=== PATIENT | male | born 1980 | race Caucasian/White ===

== ENCOUNTER 2021-05-13 07:48 | Outpatient (CLI) | payer BC, SELFPAY ==
[2021-05-13 08:32] LABS: Alanine Aminotransferase 30 U/L (16-63); Albumin Level 4.4 g/dL (3.4-5.0); Alkaline Phosphatase 59 U/L (46-116); Anion Gap 7 mmol/L (8-16); Aspartate Amino Transferase 21 U/L (15-37); Bilirubin,Total 0.4 mg/dL (0.00-1.00); Blood Urea Nitrogen 15 mg/dL (7-18); Calcium 9.2 mg/dL (8.5-10.1); Carbon Dioxide 32 mmol/L (21-32); Chloride 106 mmol/L (98-108); Cholesterol 169 mg/dL (0-200); Creatine Kinase 390 U/L (39-308); Estimated Glomerular Filt Rate > 60; Glucose 97 mg/dL (70-99); HDL Direct 38 mg/dL (40-60); LDL Cholesterol Calculated 117 mg/dL (<130); Osmolality Calculated 300 mOsm/kg (285-295); Sodium 145 mmol/L (136-145); Total Protein 6.6 g/dL (6.4-8.2); Triglycerides 71 mg/dL (0-150)
== END 2021-05-13 07:49 | disposition home or self-care (01) ==
LOC: CHSLAB 07:52
PROVIDERS: PCP Internal Medicine; Visit Provider Internal Medicine
DX: E78.2 Mixed hyperlipidemia (principal)
CPT/HCPCS: 36415; 80053; 80061; 82550

== ENCOUNTER 2024-09-03 16:23 | Outpatient (CLI) | payer BC, SELFPAY ==
--- NOTE | ~2024-09-03 | XR_ITS ---
EXAMINATION: XR clavicle RT DATE: 09/03/2024 16:42 INDICATION: Right shoulder injury. TECHNIQUE: 2 views of right clavicle were obtained. COMPARISON: Right shoulder radiographs 09/03/2024 FINDINGS: Alignment is normal. There is a nondisplaced transverse fracture of right clavicle seen on one view at the junction of the middle and distal thirds. Acromioclavicular joint is normal. IMPRESSION: 1. Nondisplaced transverse fracture of right clavicle at the junction of the middle and distal thirds . Reviewed, dictated and finalized at location B. GRINDER IMPRESSION: 1. Nondisplaced transverse fracture of right clavicle at the junction of the mi ddle and distal thirds.
--- NOTE | ~2024-09-03 | XR_ITS ---
EXAMINATION: XR shoulder RT min 2V DATE: 09/03/2024 16:42 INDICATION: Right shoulder injury. TECHNIQUE: 4 views of right shoulder were obtained. COMPARISON: None. FINDINGS: Alignment is normal. No fracture. There is a mesoacromial os acromiale. There is mild osteo arthritis of glenohumeral joint. Acromioclavicular joint is normal. IMPRESSION: 1. Mild osteoarthritis of glenohumeral joint. Reviewed, dictated and finalized at location B. ER CREELER
== END 2024-09-03 16:24 | disposition home or self-care (01) ==
PROVIDERS: PCP Internal Medicine; Visit Provider Internal Medicine
DX: S49.91XA Unspecified injury of right shoulder and upper arm, initial encounter (principal); M19.011 Primary osteoarthritis, right shoulder; S42.024A Nondisplaced fracture of shaft of right clavicle, initial encounter for closed fracture
CPT/HCPCS: 73000; 73030

== ENCOUNTER 2024-09-17 07:05 | Outpatient (CLI) | payer OTHER, SELFPAY ==
--- NOTE | ~2024-09-17 | MR_ITS ---
EXAMINATION: MR shoulder RT wo con DATE: 09/17/2024 07:48 INDICATION: Strain of muscle, fascia and tendon at the right shoulder presented with right shoulder p ain secondary to fall 2 weeks prior. TECHNIQUE: Magnetic resonance imaging (MRI) of the right shoulder was performed without intravenous c ontrast. Sequences included axial PD-weighted FS FSE, coronal oblique PD-weighted FS FSE, coronal obl ique T2-weighted FS FSE, sagittal PD-weighted FS FSE, and sagittal T1-weighted SE. COMPARISON: None. FINDINGS: Coracoacromial arch: The acromion undersurface is curved in morphology (type II). 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 The coracoacromial ligament is normal. Minima l acromioclavicular osteoarthritis. Rotator cuff: Moderate supraspinatus tendinopathy with partial-thickness articular sided tear extending 1.5 cm AP a long the superior facet footplate of the supraspinatus tendon and involving from one third to one evita f of the tendon thickness. There is mild subscapularis tendinopathy with full-thickness tear extendin g across the cephalad two thirds of the tendon including the bursal side of the tendon with fraying a nd laxity of the transverse humeral ligament. The tendon is retracted up to 2 cm from the lesser tube rosity footplate. There is a tear at the intervening biceps talita sling at the rotator cuff interval . Mild anterior infraspinatus tendinopathy. The teres minor tendon is normal. Normal rotator cuff mu scle bulk and signal. Biceps tendon, glenoid labrum and glenohumeral cartilage: There is mild tendinopathy without discrete tear of the long head biceps tendon which is subluxed acr oss the subscapularis tendon tear defect at the lesser tuberosity. Glenoid labrum is normal. Glenohum eral cartilage is normal. Fluid: Small to moderate-sized glenohumeral joint effusion with extension along the long head biceps tendon sheath is also deep subscapular recess. No loose osteochondral bodies. Small amount of fluid in the s ubacromial/subdeltoid bursa which could be due to mild bursitis or decompression of glenohumeral effu elizabet through the full-thickness rotator cuff tear. Bones: Normal marrow signal with no edema, fracture or abnormal marrow replacing process. IMPRESSION: 1. Full-thickness tear at the cephalad two thirds of the subscapularis tendon with secondary medial s ubluxation of the long head biceps tendon across the lesser tuberosity tear defect. 2. Moderate supraspinatus tendinopathy with mild partial-thickness articular sided tear along the sup erior facet footplate. 3. Mild tendinopathy without tear of the subluxed long head biceps tendon. Reviewed, dictated and finalized at location A. RGLASS SKI MAKER IMPRESSION: 1. Full-thickness tear at the cephalad two thirds of the subscapularis tendon w ith secondary medial subluxation of the long head biceps tendon across the less er tuberosity tear defect. 2. Moderate supraspinatus tendinopathy with mild partial-thickness articular si ded tear along the superior facet footplate. 3. Mild tendinopathy without tear of the subluxed long head biceps tendon.
--- OUTSIDE RECORDS SUMMARY | 2024-09-17 07:09 | XMS_ITS | Clinical Summary ---
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 (EVALI) 10/26/2019 Dependence on nicotine from cigarettes 9 Myalgia 04/21/2019 Family history of coronary arteriosclerosis Fatigue Family History Medical History Relation Comments Heart Attack Brother Heart Attack Father Relation Status Comments Brother Alive heart attack at age 38 Father Alive MT at age 38 Mother Alive hypothyroidism Social History Tobacco Use Types Packs/Day Years Used Date Smoking Tobacco: Every Day Cigarettes Last attempted t o quit: 08/22/2002 Electronic Cigarettes Smokeless Tobacco: Never Alcohol Use Standard Drinks/Week Comments Yes 0 (1 standard drink = 0.6 oz pur e alcohol) occasional use Overall Financial Resource Strain (CARDIA) Answe r Date Recorded Difficulty of Paying Living Expenses Somewhat marcial rd 04/22/2019 Sex and Gender Information Value Date Recorded Sex Assigned at Not on file Legal Sex Male 10:19 AM CDT Gender Identity Not on file Sexual Orientation Not on file 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 Not on file Not on file Not on file Last Filed Vital Signs Vital Sign Reading Time Taken Comments Blood Pressure 122/77 04/24/2019 9:34 AM CDT Pulse 69 04/24/2019 9:34 AM CDT Temperature - - Respiratory Rate 16 04/24/2019 9:34 AM CDT Oxygen Saturation 97% 04/24/2019 9:34 AM CDT Inhaled Oxygen Concentration - - Weight 83.9 kg (185 lb) 04/24/2019 9:34 AM CDT Height 180.3 cm (5' 11 ) 04/24/2019 9:34 AM CDT Body Mass Index 25.8 04/24/2019 9:34 AM CDT Plan of Treatment Health Maintenance Due Date Last Done Comments Annual Physical 12/16/1983 Pneumococcal Vaccine: Pediat rics (0 to 5 Years) and At-Risk Patients (6 to 64 Years) (1 of 2 - PCV) 1986 Hepatitis C 1998 DTaP, Tdap and Td Vaccines ( 1 - Tdap) 12/16/1999 Hepatitis B Vaccines (1 of 3 - 19+ 3-dose series) 12/16/1999 COVID-19 Vaccine (2023-2 5 season) 2024 Influenza Adult (#1) 2024 HPV Vaccines Aged Out No longer eligi ble based on patient's age to complete this topic Meningococcal B Vaccine Aged Out No l onger eligible based on patient's age to complete this topic Meningococcal Vaccine Aged Out No guera mahin eligible based on patient's age to complete this topic RSV Immunizations Under 20 Months Aged Out No longer eligible based on patient's age to complete this topic Insurance Care Teams Civil Cad Designer Relationship Specialty Start Date End Date Brenda Bryant MD [address] [place] [id number] PCP - General INTERNAL MEDICINE 12/16/18 Horacio Huddleston MD [address] [place] [address] [place] [employer] Engineer CARDIOVASCULAR DISEASE 12/16/18
--- OUTSIDE RECORDS SUMMARY | 2024-09-17 07:09 | XMS_ITS | Referral Summary ---
Author Organization [address] Address [address] [place] [id number] Care Team Providers Care Apprentice Painter Neckties Name Role Phone Brenda Bryant MD Primary Care Provider Allergies No known active allergies Medications rosuvastatin (CRESTOR) 10 mg tablet 12/10/2018 Active omeprazole (PriLOSEC) 20 mg capsuleIndicatio ns:Gastroesophag eal reflux disease without esophagitis Take 1 capsule (20 mg total) by mouth 2 (two) times a day 60 capsule 10/29/2023 Active famotidine (PEPCID) 20 mg tablet Take 1 tablet (20 mg total) by mouth 2 (two) times a day 60 tablet 10/29/2023 Active Active Problems Problem Noted Date Diagnosed Date Fatigue 10/29/2023 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 (EVALI) 10/26/2019 Hyperlipidemia 10/26/2019 Dependence on nicotine from cigarettes 9 Myalgia 04/21/2019 Social History Tobacco Use Types Packs/Day Years Used Date Smoking Tobacco: Never Assessed Sex and Gender Information Value Date Recorded Sex Assigned at Not on file Legal Sex Male 2:06 PM CDT Gender Identity Not on file Sexual Orientation Not on file Last Filed Vital Signs Vital Sign Reading Time Taken Comments Blood Pressure 132/90 10/29/2023 2:52 PM CDT Pulse 78 10/29/2023 2:52 PM CDT Temperature 36.8 C (98.2 F) 10/29/2023 2:52 PM CDT Respiratory Rate 12 10/29/2023 2:52 PM CDT Oxygen Saturation 96% 10/29/2023 2:52 PM CDT Inhaled Oxygen Concentration - - Weight 81.6 kg (180 lb) 10/29/2023 2:52 PM CDT Height 177.8 cm (5' 10 ) 10/29/2023 2:52 PM CDT Body Mass Index 25.83 10/29/2023 2:52 PM CDT Plan of Treatment Not on file Insurance [facility] Care Teams Apprentice Painter Neckties Relationship Specialty Start Date End Date Brenda Bryant MD [address] [place] [address] PCP - General 02/08/17
--- OUTSIDE RECORDS SUMMARY | 2024-09-17 07:09 | XMS_ITS | Encounter Summary ---
Author Organization [facility] Address [facility] [place] [address] Care Team Providers Care Sec Reporting Consultant Name Role Phone Brenda Bryant MD Primary Care Provider [phone] Horacio Huddleston MD Unavailable Unavailabl e Encounter Details Date Type Department Care Team (Late st Contact Info) Description 04/21/2019 [facility] [address] [place] [id number] Brenda Bryant MD [address] [place] [address] Social History Tobacco Use Types Packs/Day Years Used Date Smoking Tobacco: Never Assessed Overall Financial Resource Strain (CARDIA) Answe r Date Recorded Difficulty of Paying Living Expenses Somewhat marcial rd 04/22/2019 Sex and Gender Information Value Date Recorded Sex Assigned at Not on file Legal Sex Male 10:19 AM CDT Gender Identity Not on file Sexual Orientation Not on file documented as of this encounter Plan of Treatment Not on file documented as of this encounter Visit Diagnoses Not on filedocumented in this encounter Care Teams Sec Reporting Consultant Relationship Specialty Start Date End Date Brenda Bryant MD [address] [place] [address] PCP - General INTERNAL MEDICINE 12/16/18 Horacio Huddleston MD [address] [place] [address] [place] [employer] Terrazzo Worker CARDIOVASCULAR DISEASE 12/16/18 documented as of this encounter
--- OUTSIDE RECORDS SUMMARY | 2024-09-17 07:09 | XMS_ITS | Clinical Summary ---
Author Organization [address] Address [address] [place] [id number] Care Team Providers Care Out Patient Therapist Name Role Phone Brenda Bryant MD Primary [...] on file Sexual Orientation Not on file Obstetrics History Last Filed Vital Signs Vital Sign Reading [...] 10/29/2023 2:52 PM CDT Plan of Treatment Health Maintenance Due Date Last Done Comments Depression Screening 1980 Hepatitis C Screening 1980 Varicella Vaccines (1 of 2 - 13+ 2-dose series) 1993 Hepatitis B Screening 1998 Regular Well Visit/Exam 18-64 1998 DTaP/Tdap/Td Vaccine (2 - Td or Tdap) 05/16/2020 05/16/2010 Covid-19 Vaccine (3 - 2023-2 5 season) 2024 02/17/2021, 01/27/2021 Influenza Vaccine (#1) 2024 05/24/2021 HPV Vaccines Aged Out No longer eligi ble based on patient's age to complete this topic Pneumococcal vaccine <65 Aged Out No longer eligible based on patient's age to complete this topic Insurance [facility] Member Subscriber Plan / Payer (Ef fective 2022-Present) Name:Cam Lee Member ID:[id number] Relation to Subscriber:Self Name:Cam Lee Subscriber ID:[id number] Payer ID:[id number] (NAIC) Type: [employer] Address: [facility] [id number] [place] [address] Care Teams Out Patient Therapist Relationship Specialty Start Date End Date Brenda Bryant MD [address] [place] [address] PCP - General 02/08/17
== END 2024-09-17 07:06 | disposition home or self-care (01) ==
LOC: CHSIMG 07:07
PROVIDERS: PCP Internal Medicine; Visit Provider Orthopaedic Surgery
DX: S46.219A Strain of muscle, fascia and tendon of other parts of biceps, unspecified arm, initial encounter (principal)
CPT/HCPCS: 73221

== ENCOUNTER 2024-10-20 07:58 | Outpatient (RCR) | payer OTHER, SELFPAY ==
--- NOTE | 2024-10-20 12:03 | PTOPEVAL1 ---
Assessment and note entered by Nicky Womack DPT Evaluation Information Assessment Status Evaluation Diagnosis R shoulder pain Other ICD-10 Condition Codes ( S46.111A, S46.011A PT) Onset 08/31/24 Subjective Information Patient reports he fell while carrying a ladder on Aug 31. 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 He reports he has not worked since injury. He reports in order to return back to work he has to lift 60 #. He reports difficulty sleeping, dressing and reaching over head. He reports he is left handed but also has torn ligaments in the L. He is here for pre op ROM and strength but is not yet scheduled for surgery. Reported Pain Level Pain Score 4: Self Report Assessment PT Clinical Summary Mr. Lee is a a 43 year old male who presents to PT with R shoulder pain following fall at work. He demonstrates decreased R shoulder strength and ROM limiting his ability to return to work as well as dress, sleep and complete house hold tasks. He would benefit from skilled PT to address impairments and return to PLOF. Plan of Care Interventions Electrical Stimulation,Gait Training,Hot Pack/Cold Pack,Manual Therapy,Neuro Re-education,Patient/ Caregiver Education,Therapeutic Activities, Therapeutic Exercise PT Services Indicated Yes Treatment Frequency and 2x weekly for 12 visits Duration These treatments will address the objective and functional deficits as defined above. The patient will be advanced safely and appropriately in order for the patient to progress towards his/her prior level of function. Additional exercises will be introduced and as well as a comprehensive home exercise program upon discharge, if needed, ?to ensure carryover of functional gains achieved in the clinic. This treatment plan has been reviewed and agreement upon by the patient.
--- NOTE | 2024-11-12 07:03 | PCPTNOTE ---
Cancelled session. Reports he has to take his daughter to the doctor.
--- NOTE | 2024-12-01 07:55 | PTOPREEVAL ---
Assessment and note entered by Nicky Womack DPT Evaluation Information Assessment Status Re-evaluation Diagnosis R shoulder pain Other ICD-10 Condition Codes ( S46.111A, S46.011A PT) Onset 08/31/24 Subjective Information Patient reports that his shoulder feels about the same. He reports some range of motion improvement but feels like that has plateaued. He reports he does not have a follow up appointment with MD at this time. Reported Pain Level Pain Score 4: Self Report Assessment PT Clinical Summary Mr. Lee has been seen for 12 visit of skilled PT with limited progress towards goals. He has demonstrated improved passive and active flexion of the R shoulder but continues to demonstrate significant weakness and poor mechanics. He will be placed on hold at this time awaiting for MD recommendations. Plan of Care Interventions Electrical Stimulation,Gait Training,Hot Pack/Cold Pack,Manual Therapy,Neuro Re-education,Patient/ Caregiver Education,Therapeutic Activities, Therapeutic Exercise PT Services Indicated Yes Treatment Frequency and hold and wait for MD recommendations Duration These treatments will address the objective and functional deficits as defined above. The patient will be advanced safely and appropriately in order for the patient to progress towards his/her prior level of function. Additional exercises will be introduced and as well as a comprehensive home exercise program upon discharge, if needed, ?to ensure carryover of functional gains achieved in the clinic. This treatment plan has been reviewed and agreement upon by the patient.
--- NOTE | 2025-02-23 16:56 | PCPTNOTE ---
patient returned to
== END 2025-01-18 23:59 | disposition home or self-care (01) ==
LOC: CHSPT 07:58
PROVIDERS: Visit Provider Orthopaedic Surgery
DX: S46.111A Strain of muscle, fascia and tendon of long head of biceps, right arm, initial encounter (principal); S46.011A Strain of muscle(s) and tendon(s) of the rotator cuff of right shoulder, initial encounter
CPT/HCPCS: 97014; 97110; 97112; 97140; 97161; 97530; G0283

== ENCOUNTER 2025-03-12 08:23 | Outpatient (RCR) | payer OTHER, SELFPAY ==
--- NOTE | 2025-03-31 10:05 | OPREHPOC ---
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 Target Visit 12 PT Problem 3 PT Problem #3 Impaired Range of Motion PT Goal 1 Goal / Goal Update 160 degrees or better active R shoulder flex 160 degrees or better active R shoulder abd 80 degrees or better active R shoulder ER at 90 degrees abduction 60 degrees or better active R shoulder IR at 90 degrees abduction Target Visit 12 PT Problem 4 PT Problem #4 Impaired Strength PT Goal 1 Goal / Goal Update 4+/5 or better overall R shoulder strength 5/5 or better R elbow strength Target Visit 12 PT Problem 5 PT Problem #5 Impaired Functional Mobility PT Goal 1 Goal / Goal Update quick dash to display 10% or less functional deficits patient to perform lifting activities with the UE' s bilat for 1 hour without increased pain patient to be ready to return to full work duties Target Visit 12
--- NOTE | 2025-03-31 10:05 | PTOPEVAL1 ---
Assessment and note entered by JT File, PT Evaluation Information Assessment Status Evaluation ICD-10 Condition Codes (PT) Pain in right shoulder M25.511,Encounter for other orthopedic aftercare Z47.89 Onset 08/17/2024 Subjective Information patient reports he initially injured the R shoulder back on 08/17/2024. 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 he reports he did not have surgery until 01/15/2025. he is now coming to skilled PT for rehab of the R shoulder. he reports he is supposed to be in the sling still, but has not been wearing it. he reports he has been doing laundry, dishes, mowing, and other activities at home. per his surgeon, he is ok to perform PROM, AAROM, AROM , but no strengthening yet. Reported Pain Level Pain Score 5: Self Report Pain Score 2: Self Report Assessment PT Clinical Summary mr. bloom is a 44 yo man who presents to skilled PT for rehab following R shoulder RTC repair. he displays decreased rom both passive and active, weakness, pain, and deficits in ability to perform work related activities. continued skilled PT is indicated to improve his objective/functional deficits and return to his prior level functional work activity performance/quality of life. Plan of Care Interventions Electrical Stimulation,Hot Pack/Cold Pack,Manual Therapy,Neuro Re-education,Patient/Caregiver Education,Therapeutic Activities,Therapeutic Exercise PT Services Indicated Yes Treatment Frequency and 3x weekly for 12 visits Duration These treatments will address the objective and functional deficits as defined above. The patient will be advanced safely and appropriately in order for the patient to progress towards his/her prior level of function. Additional exercises will be introduced and as well as a comprehensive home exercise program upon discharge, if needed, ?to ensure carryover of functional gains achieved in the clinic. This treatment plan has been reviewed and agreement upon by the patient.
--- NOTE | 2025-04-02 07:49 | OPREHPOC ---
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 Target Visit 12 Progress Not Met PT Problem 3 PT Problem #3 Impaired Range of Motion PT Goal 1 Goal / Goal Update 160 degrees or better active R shoulder flex 160 degrees or better active R shoulder abd 80 degrees or better active R shoulder ER at 90 degrees abduction 60 degrees or better active R shoulder IR at 90 degrees abduction Target Visit 12 Progress Not Met PT Problem 4 PT Problem #4 Impaired Strength PT Goal 1 Goal / Goal Update 4+/5 or better overall R shoulder strength 5/5 or better R elbow strength Target Visit 12 Progress Not Met PT Problem 5 PT Problem #5 Impaired Functional Mobility PT Goal 1 Goal / Goal Update quick dash to display 10% or less functional deficits patient to perform lifting activities with the UE' s bilat for 1 hour without increased pain patient to be ready to return to full work duties Target Visit 12 Progress Not Met
--- NOTE | 2025-04-02 07:49 | PTOPPROG ---
Assessment and note entered by Marina Jaimes, PT Evaluation Information Assessment Status Progress ICD-10 Condition Codes (PT) Pain in right shoulder M25.511,Encounter for other orthopedic aftercare Z47.89 Onset 08/17/2024 Subjective Information Pt reports his shoulder is feeling alright and that his pain level is still hovering around a 2 or 3/10 at all times. He reports he's been doing his exercises but not as much as I should be, and he's also been using the arm at home to lift things and work on restoring a truck and golf cart . He is no longer wearing the sling and has been sleeping better but he's been waking up from rolling onto the shoulder. He follows up with the surgeon in the first week of April. Assessment PT Clinical Summary Mr. Lee has attended 10 skilled PT visits following R shoulder surgery on 01/15/2025. He demonstrates improvement in PROM and has begun active movements of the shoulder. Pt follows up with the surgeon in the first week of April. He has continued to perform his HEP at home most days but still demonstrates impairments in ROM this date, and he will benefit from continued skilled PT intervention to make further progress. Plan of Care Interventions Electrical Stimulation,Hot Pack/Cold Pack,Manual Therapy,Neuro Re-education,Patient/Caregiver Education,Therapeutic Activities,Therapeutic Exercise PT Services Indicated Yes Treatment Frequency and Continue per POC Duration These treatments will address the objective and functional deficits as defined above. The patient will be advanced safely and appropriately in order for the patient to progress towards his/her prior level of function. Additional exercises will be introduced and as well as a comprehensive home exercise program upon discharge, if needed, ?to ensure carryover of functional gains achieved in the clinic. This treatment plan has been reviewed and agreement upon by the patient.
--- NOTE | 2025-04-07 08:01 | OPREHPOC ---
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 Target Visit 12 Progress Not Met PT Goal 2 Goal / Goal Update Continue Target Visit 24 PT Problem 3 PT Problem #3 Impaired Range of Motion PT Goal 1 Goal / Goal Update 160 degrees or better active R shoulder flex 160 degrees or better active R shoulder abd 80 degrees or better active R shoulder ER at 90 degrees abduction 60 degrees or better active R shoulder IR at 90 degrees abduction Target Visit 12 Progress Not Met PT Goal 2 Goal / Goal Update Continue Target Visit 24 PT Problem 4 PT Problem #4 Impaired Strength PT Goal 1 Goal / Goal Update 4+/5 or better overall R shoulder strength 5/5 or better R elbow strength Target Visit 12 Progress Not Met PT Goal 2 Goal / Goal Update Continue Target Visit 24 PT Problem 5 PT Problem #5 Impaired Functional Mobility PT Goal 1 Goal / Goal Update quick dash to display 10% or less functional deficits patient to perform lifting activities with the UE' s bilat for 1 hour without increased pain patient to be ready to return to full work duties Target Visit 12 Progress Not Met PT Goal 2 Goal / Goal Update Continue
--- NOTE | 2025-04-07 08:01 | PTOPEVAL1 ---
Assessment and note entered by Macarena Perez, PT Evaluation Information Assessment Status Progress ICD-10 Condition Codes (PT) Pain in right shoulder M25.511,Encounter for other orthopedic aftercare Z47.89 Onset 08/17/2024 Subjective Information Cam reports his shoulder is slowly getting better. He is able to don a belt now and can scratch his lower back as well. He still notes pain when he moves his arm rating it a 2-3/10. Pain will get higher if he over does it. 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 He is required to climb ladders and support his weight with his right arm while on the ladder . Reported Pain Level Pain Score 2: Self Report Assessment PT Clinical Summary Cam Lee has attended 12 skilled PT visits following R shoulder surgery on 01/15/2025. He is nearly 12 weeks post op at this time. He demonstrates improvement in PROM and has begun active movements of the shoulder. He continues to have limitations in passive and active ROM. Strength training has not been initiated per surgeon's orders. Cam will follow up with the surgeon in the first week of April. He will continue to benefit from skilled PT to further address passive and active ROM and to initiate strength training when he is allowed. Plan of Care Interventions Electrical Stimulation,Hot Pack/Cold Pack,Manual Therapy,Neuro Re-education,Patient/Caregiver Education,Therapeutic Activities,Therapeutic Exercise PT Services Indicated Yes Treatment Frequency and Anticipate new orders from surgeon 2 times a week Duration for 12 visits These treatments will address the objective and functional deficits as defined above. The patient will be advanced safely and appropriately in order for the patient to progress towards his/her prior level of function. Additional exercises will be introduced and as well as a comprehensive home exercise program upon discharge, if needed, ?to ensure carryover of functional gains achieved in the clinic. This treatment plan has been reviewed and agreement upon by the patient.
--- NOTE | 2025-05-27 07:55 | OPREHPOC ---
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 Target Visit 12 Progress Not Met PT Goal 2 Goal / Goal Update Continue Target Visit 36 PT Problem 3 PT Problem #3 Impaired Range of Motion PT Goal 1 Goal / Goal Update 160 degrees or better active R shoulder flex 160 degrees or better active R shoulder abd 80 degrees or better active R shoulder ER at 90 degrees abduction 60 degrees or better active R shoulder IR at 90 degrees abduction Target Visit 12 Progress Not Met PT Goal 2 Goal / Goal Update Continue Target Visit 36 PT Problem 4 PT Problem #4 Impaired Strength PT Goal 1 Goal / Goal Update 4+/5 or better overall R shoulder strength 5/5 or better R elbow strength Target Visit 12 Progress Not Met PT Goal 2 Goal / Goal Update Continue Target Visit 36 PT Problem 5 PT Problem #5 Impaired Functional Mobility PT Goal 1 Goal / Goal Update quick dash to display 10% or less functional deficits patient to perform lifting activities with the UE' s bilat for 1 hour without increased pain patient to be ready to return to full work duties Target Visit 12 Progress Not Met PT Goal 2 Goal / Goal Update Continue Target Visit 36
--- NOTE | 2025-05-27 07:55 | PTOPPROG ---
Assessment and note entered by Macarena Perez, PT Evaluation Information Assessment Status Progress ICD-10 Condition Codes (PT) Pain in right shoulder M25.511,Encounter for other orthopedic aftercare Z47.89 Onset 08/17/2024 Subjective Information Cam reports his shoulder is slowly getting better. He still has difficulty reaching out to the side and feels he still has weakness. Assessment PT Clinical Summary Cam Lee has attended 23 skilled PT visits following R shoulder surgery on 01/15/2025. He is nearly 19 weeks post op at this time. He demonstrates improvement in right shoulder AROM and PROM. He continues to have limitations in right shoulder strength as well as passive and active ROM. Strength training has not been initiated per surgeon's orders. He will follow up with the surgeon again next week. He will continue to benefit from skilled PT to further address passive and active ROM and to initiate strength training when he is allowed. Plan of Care Interventions Electrical Stimulation,Hot Pack/Cold Pack,Manual Therapy,Neuro Re-education,Patient/Caregiver Education,Therapeutic Activities,Therapeutic Exercise PT Services Indicated Yes Treatment Frequency and Anticipate new orders from surgeon 2 times a week Duration for 12 visits These treatments will address the objective and functional deficits as defined above. The patient will be advanced safely and appropriately in order for the patient to progress towards his/her prior level of function. Additional exercises will be introduced and as well as a comprehensive home exercise program upon discharge, if needed, ?to ensure carryover of functional gains achieved in the clinic. This treatment plan has been reviewed and agreement upon by the patient.
== END 2025-06-03 20:00 | disposition still patient (30) ==
LOC: CHSPT 08:23
DX: S46.011D Strain of muscle(s) and tendon(s) of the rotator cuff of right shoulder, subsequent encounter (principal)
CPT/HCPCS: 97014; 97110; 97112; 97161; 97530; G0283

== ENCOUNTER 2025-07-06 16:46 | Outpatient (RCR) | payer OTHER, SELFPAY ==
--- NOTE | 2025-06-25 17:44 | PTOPREEVAL ---
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 he reports it is still really difficult to reach behind his head. Reported Pain Level Pain Score 2: Self Report Assessment PT Clinical Summary mr. bloom presents to skilled PT services for re- evaluation for his R shoulder. 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 he presents with continued R shoulder weakness and functional deficits. continued skilled PT is indicated to improve his objective/functional deficits and return to prior level functional mobility and strength to perform full work duties. Plan of Care Interventions Electrical Stimulation,Hot Pack/Cold Pack,Manual Therapy,Neuro Re-education,Patient/Caregiver Education,Therapeutic Activities,Therapeutic Exercise PT Services Indicated Yes Treatment Frequency and continue skilled PT 2x weekly for 10 more visits Duration after today. These treatments will address the objective and functional deficits as defined above. The patient will be advanced safely and appropriately in order for the patient to progress towards his/her prior level of function. Additional exercises will be introduced and as well as a comprehensive home exercise program upon discharge, if needed, ?to ensure carryover of functional gains achieved in the clinic. This treatment plan has been reviewed and agreement upon by the patient.
--- NOTE | 2025-08-24 15:17 | PTOPDC ---
Assessment and note entered by Macarena Perez, PT Evaluation Information Assessment Status Discharge - Pt Not Present ICD-10 Condition Codes (PT) Pain in right shoulder M25.511,Encounter for other orthopedic aftercare Z47.89 Onset 08/17/2024 Subjective Information Pt no present, no subjective attained. Assessment PT Clinical Summary Pt has not been seen in outpatient PT since . He has not returned or called and will be discharged. Plan of Care PT Services Indicated No
== END 2025-07-07 20:00 | disposition home or self-care (01) ==
LOC: CHSPT 16:46
DX: S46.011D Strain of muscle(s) and tendon(s) of the rotator cuff of right shoulder, subsequent encounter (principal)
CPT/HCPCS: 97110; 97112; 97150; 97530